=== PATIENT | female | born 1965 | race Caucasian/White ===

== ENCOUNTER 2017-01-24 08:49 | Emergency (ER) | payer BC ==
[2017-01-24] MEDS ORDERED: LET GEL TOPICAL 1 EA SYR TP ONE (09:08)
--- NOTE | 2017-01-24 09:10 | EDPHY ---
H & P Time Seen by Provider: 01/24/17 08:59 HPI/ROS: CHIEF COMPLAINT: Fall running, right hand injury HISTORY OF PRESENT ILLNESS: 51-year-old female presents to the emergency department after she fell running just prior to [place]. Patient's thinks that she might have just hit her right hand and then this caused her to fall and then she fell approximately 2 feet or so off of a bridge that was overlying a habemat[place]l. She complains of multiple abrasions as well as isolated pain in her right hand and wrist. She denies hitting her head or losing consciousness. Denies neck or back pain. Denies chest pain or difficulty breathing. Denies abdominal pain. Denies injury to her lower extremities. She was able to get up and move around after this happened. She believes her tetanus shot is current. REVIEW OF SYSTEMS: Constitutional: No fever, no chills. Eyes: No double or blurry vision. ENT: No sore throat. Respiratory: No cough, no shortness of breath. Cardiac: No chest pain. Gastrointestinal: No abdominal pain, vomiting or diarrhea. Genitourinary: No dysuria. Musculoskeletal: No neck or back pain. Skin: Abrasions. No rashes. Neurological: No headache. Past Medical/Surgical History: Depression Social History: and lives in [place] Smoking Status: Never smoked Physical Exam: General Appearance: Alert, no distress. No visible signs of trauma to her head. She is mentating normally and answering questions appropriately. Eyes: Pupils equal and round. Extraocular motions are all intact. ENT: Mouth: Mucous membranes moist. No dental injury or malocclusion. Respiratory: No wheezing, rhonchi, or rales, lungs are clear to auscultation. Cardiovascular: Regular rate and rhythm. Gastrointestinal: Abdomen is soft and nontender, no masses, no rebound or guarding, bowel sounds normal. Neurological: Alert and oriented x 3, cranial nerves II through XII grossly intact Skin: Superficial abrasions to the dorsal aspect of the left elbow and medial aspect of her left wrist. She also has superficial abrasion to the anterior aspect of the right knee. Warm and dry, no rashes. Musculoskeletal: Nontender to palpate along the cervical, thoracic or lumbar spine. Neck is supple. Extremities: Swelling and ecchymosis noted to the dorsal aspect of her right hand overlying the 4th and 5th metacarpals. No rotational deformities noted. Pain with palpation overlying the 4th and 5th metacarpals. She has limited flexion secondary to pain. She has pain with flexing and extending her right wrist. She is able to fully supinate and pronate without difficulty. She has full range of motion of the right elbow and right shoulder. Straight leg raise is negative bilaterally. Full range of motion of the lower extremities bilaterally as well as left upper extremity. Psychiatric: Patient is oriented X 3, there is no agitation. Constitutional: Initial Vital Signs Temperature (C) 36.3 C 01/24/17 08:52 Heart Rate 64 01/24/17 08:52 Respiratory Rate 14 01/24/17 08:52 Blood Pressure 98/42 L 01/24/17 08:52 O2 Sat (%) 100 01/24/17 08:52 O2 Delivery Mode Room Air Allergies/Adverse Reactions: Penicillins Allergy (Verified 03/15/10 11:49) Home Medications: Medication Instructions Recorded Eliza Allergy 08/24/13 Multivitamin 08/24/13 Prednisone 08/24/13 Trispec Pse Liquid 08/24/13 Zinc 08/24/13 oxyCODONE/APAP 5/325 [Percocet 1 tab PO Q4-6PRN PRN #20 tab 08/24/13 5/325 (RX)] Medical Decision Making - Diagnostics Imaging Results: Imaging Impressions Hand X-Ray 01/24/17 09:06 Impression: Acute nondisplaced base of the fourth metacarpal fracture. Wrist X-Ray 01/24/17 09:06 Impression: Acute nondisplaced base of fourth metacarpal fracture. X-rays of the right hand reveal fracture to the base of the 4th metacarpal. This is reviewed by myself the PAC system. Radiology interpretation to follow. X-ray of the right wrist reveals no fracture. This is reviewed by myself the PAC system. Radiology interpretation to follow. Imaging: I viewed and interpreted images myself Procedures: Patient was placed in a volar Ortho Glass splint to her right hand examined post application in good placement with normal [employer]. ED Course/Re-evaluation: 51-year-old female presents to the emergency department after she fell running. X-rays of her right hand and wrist reveal fracture to the base of the 4th metacarpal. Wrist fracture is not identified. She was placed in a volar splint and given orthopedic referral. Her abrasions were thoroughly cleansed and dressed. No sutures required. Abrasions were thoroughly cleansed and dressed. Differential Diagnosis: Including but not limited to fracture, dislocation, contusion, sprain, laceration - Data Points Medications Given: Discontinued Medications Tetracaine/Epinephrine/Lidocaine (Let Gel Topical) 2 ea TP EDNOW ONE Stop: 01/24/17 09:09 Last Admin: 01/24/17 09:27 Dose: 2 ea Departure - Departure Disposition: Home, Routine, Self-Care Clinical Impression: Abrasion, multiple sites Right hand fracture Qualifiers: Encounter type: initial encounter Fracture type: closed Qualified Code(s): S62.91XA - Unspecified fracture of right wrist and hand, initial encounter for closed fracture Right wrist sprain Qualifiers: Encounter type: initial encounter Qualified Code(s): S63.501A - Unspecified sprain of right wrist, initial encounter Instructions: Hand Fracture (ED), Abrasion (ED), Wrist Sprain (ED), Acute Wounds (ED) Additional Instructions: Keep splint on until follow-up with orthopedic surgeon in 1 week to recheck. Ibuprofen 600 mg every 8 hours as needed for pain. Ice and elevate to help reduce swelling and relieve pain. Return to the emergency department if you develop numbness or tingling in your fingers or if you have any other concerns. Referrals: Christiano Knight MD [Medical Doctor] - 2-3 days without fail (Orthopedic surgeon on-call)
[2017-01-24 10:13] VITALS: BP 102/54; PULSE 58; RESP 16; TEMP 98.4; O2SAT 97
== END 2017-01-24 10:12 | disposition home or self-care (01) ==
DX: S62.344A Nondisplaced fracture of base of fourth metacarpal bone, right hand, initial encounter for closed fracture (principal); S63.501A Unspecified sprain of right wrist, initial encounter; S50.312A Abrasion of left elbow, initial encounter; S60.812A Abrasion of left wrist, initial encounter; S80.211A Abrasion, right knee, initial encounter; W17.89XA Other fall from one level to another, initial encounter; Y99.8 Other external cause status; Y93.02 Activity, running

== ENCOUNTER 2017-01-29 16:46 | Emergency (ER) | payer BC ==
[2017-01-29 17:04] VITALS: RESP 16; TEMP 98.2
--- NOTE | 2017-01-29 17:53 | EDPHY ---
H & P Stated Complaint: Sent here by Eugene's office to loosen cast applied today Time Seen by Provider: 01/29/17 17:14 HPI/ROS: Chief complaint: Cast too tight on right arm History of present illness: This is a 51-year-old female who presents to the emergency department concerned a cast is too tight on her right arm. Patient broke her 4th metacarpal bone approximately 5 days ago. She was seen by Dr. Knight today in clinic who placed a cast. She states she is concerned that the cast has become too tight. She feels tightness. Further her fingers are starting to turn white, cool and tingly. She denies other associated signs or symptoms including no new trauma. - Personal History LMP (Females 10-55): Post Menopausal Current Tetanus Diphtheria and Acellular Pertussis (TDAP): Yes - Medical/Surgical History Hx Asthma: No Hx Chronic Respiratory Disease: No Hx Diabetes: No Hx Cardiac Disease: No Hx Renal Disease: No Hx Cirrhosis: No Hx Alcoholism: No Hx HIV/AIDS: No Hx Splenectomy or Spleen Trauma: No Other PMH: depression - Social History Smoking Status: Never smoked - Physical Exam Exam: General: Alert, nontoxic. Short arm cast in place on the right upper extremity. Skin: Mild pallor to fingers. Fingers are cool compared to the left hand. Musculoskeletal: She can wiggle her fingers. Vascular: Delayed capillary refill in the fingers of the right hand. Neurologic: Sensation does appear intact in the right upper extremity. Constitutional: Initial Vital Signs Temperature (C) 36.8 C 01/29/17 16:55 Heart Rate 57 L 01/29/17 16:55 Respiratory Rate 16 01/29/17 16:55 Blood Pressure 103/68 01/29/17 16:55 O2 Sat (%) 96 01/29/17 16:55 O2 Delivery Mode Room Air Allergies/Adverse Reactions: Penicillins Allergy (Unknown, Verified 01/29/17 16:59) as child Home Medications: Medication Instructions Recorded buPROPion XL [Wellbutrin Xl] 150 mg PO DAILY 01/29/17 Medical Decision Making ED Course/Re-evaluation: Patient is seen under the supervision of my secondary supervising physician Dr. Armen Smith. Patient presents to the emergency department concerned the cast that was placed on her right upper extremity today is too tight. She does have evidence of vascular compromise. I have discussed talk with Dr. Knight. He is comfortable with us bivalving the cast. This is performed. Symptoms have resolved. On re-evaluation she is neurovascularly intact in the right upper extremity. She will be discharged home with the cast bivalved. She is to follow up with Dr. Knight for recasting. Patient has voiced understanding and agreement with plan. Departure - Departure Disposition: Home, Routine, Self-Care Clinical Impression: Cast removal Condition: Good Instructions: Cast Care (ED) Additional Instructions: Follow-up with Dr. Knight is office for recasting Keep arm elevated as much as possible If symptoms worsen or new symptoms develop return to the emergency room for recheck Referrals: CARROLL BENITEZ [Primary Care Provider] - As per Instructions Christiano Knight MD [Medical Doctor] - As per Instructions
[2017-01-29 18:35] VITALS: BP 112/54; PULSE 67; O2SAT 97
== END 2017-01-29 18:35 | disposition home or self-care (01) ==
DX: Z46.89 Encounter for fitting and adjustment of other specified devices (principal)

== ENCOUNTER → 2017-02-12 | Outpatient (CLI) | payer BC | LOC: BMCIMAGING 11:06 | PROVIDERS: ATTEND Emergency Medicine | DX: S62.314D Displaced fracture of base of fourth metacarpal bone, right hand, subsequent encounter for fracture with routine healing (principal) ==

== ENCOUNTER → 2017-02-28 | Outpatient (CLI) | payer BC | LOC: BMCIMAGING 08:49 | PROVIDERS: ATTEND Physician Assistant | DX: S62.344D Nondisplaced fracture of base of fourth metacarpal bone, right hand, subsequent encounter for fracture with routine healing (principal) ==

== ENCOUNTER → 2017-03-28 | Outpatient (CLI) | payer BC | LOC: BMCIMAGING 08:25 | PROVIDERS: ATTEND Physician Assistant | DX: S62.344D Nondisplaced fracture of base of fourth metacarpal bone, right hand, subsequent encounter for fracture with routine healing (principal) ==